=== PATIENT | male | born 1955 | race Caucasian/White ===

== ENCOUNTER 2017-03-22 14:55 | Emergency (ER) | payer BC, OTHER ==
[2017-03-22 15:30] VITALS: BP 168/91
--- NOTE | 2017-03-22 16:08 | UC ---
Lower Extremity/Ankle HPI - HPI Summary HPI Summary: 62 male presents to the with complaints of left toe tenderness, swelling and erythema that began 1 week ago. States it got worse over the weekend however, improved today after taking two aleve last night and taking mason extract vitamins. Patient states he had a similar episode years ago that were the same symptoms and diagnosed as gout. Took medication and had improvement. Denies any other pain or complaints. No other PMHx. Admits to eating a diet high in beer and cheese. - History of Current Complaint Hx Obtained From: Patient Onset/Duration: Sudden Onset, Lasting Weeks - 1, Still Present Severity Initially: Moderate Severity Currently: Mild Pain Intensity: 1 Pain Scale Used: 0-10 Numeric Aggravating Factor(s): Standing, Ambulation Alleviating Factor(s): Rest, OTC Meds Able to Bear Weight: Yes Feet (Multiple View): 1 - edema, erythema, tenderness <Georgette Marcelo - Last Filed: 03/22/17 16:09> <Priscilla Vergara - Last Filed: 03/22/17 17:31> - History of Current Complaint Chief Complaint: UCLowerExtremity Stated Complaint: LEFT FOOT COMPLAINT Time Seen by Provider: 03/22/17 15:41 - Allergies/Home Medications Allergies/Adverse Reactions: Allergies Allergy/AdvReac Type Severity Reaction Status Date / Time No Known Allergies Allergy Verified 03/22/17 15:25 Home Medications: Home Medications Misc Natural Products [Tart Mason Advanced] 1 cap PO DAILY 03/22/17 [History Confirmed 03/22/17] PMH/Surg Hx/FS Hx/Imm Hx - Additional Past Medical History Additional PMH: Denies DM, HTN, Asthma Admits to arthritis - Surgical History Surgical History: None - Family History Known Family History: Positive: None - Social History Alcohol Use: Daily Substance Use Type: None Smoking Status (MU): Light Every Day Tobacco Smoker Type: Cigars Amount Used/How Often: 1 cigarello Length of Time of Smoking/Using Tobacco: Since Age 47 - Immunization History Most Recent Influenza Vaccination: Not the 2016/2017 <Georgette Marcelo - Last Filed: 03/22/17 16:09> Review of Systems Constitutional: Negative Respiratory: Negative Cardiovascular: Negative Musculoskeletal: Arthralgia, Edema, Myalgia, Other: - erythema, left great toe Neurological: Negative All Other Systems Reviewed And Are Negative: Yes <Georgette Marcelo - Last Filed: 03/22/17 16:09> Physical Exam Triage Information Reviewed: Yes Appearance: Well-Appearing, No Pain Distress, Well-Nourished Vital Signs: Initial Vital Signs Temp 98.5 F 03/22/17 15:22 Pulse 70 03/22/17 15:22 Resp 16 03/22/17 15:22 BP 168/91 03/22/17 15:22 Pulse Ox 99 03/22/17 15:22 elevated BP noted, patient encouraged to follow up with pcp for recheck. asymptomatic at this time. Vital Signs Reviewed: Yes Neck: Positive: Supple Respiratory: Positive: Chest non-tender, Lungs clear, Normal breath sounds Cardiovascular: Positive: RRR, No Murmur, Pulses Normal - 2+ pedal b/l, Brisk Capillary Refill Musculoskeletal: Positive: Strength Intact, ROM Intact, Edema @ - with erythema and slight tenderness to palpation of left great toe at MCP. rest of exam normal Skin Exam: Normal Skin: Positive: Other - described above, left great toe <Georgette Marcelo - Last Filed: 03/22/17 16:09> Vital Signs: Initial Vital Signs Temp 98.5 F 03/22/17 15:22 Pulse 70 03/22/17 15:22 Resp 16 03/22/17 15:22 BP 168/91 03/22/17 15:22 Pulse Ox 99 03/22/17 15:22 <Priscilla Vergara - Last Filed: 03/22/17 17:31> Lower Extremity Course/Dx - Course Course Of Treatment: appears by PE findings and patient history to be suffering from acute gout. patient has had in the past, with similar symptoms. will treat with indomethacin and colchicine. recheck with PCP prior to travel to ensure improvement and more medication if needed. no concern for other etiology at this time, however if does not improve or worsens needs further work up and evaluation . normal vitals other than elevated BP, recheck with PCP. asmymptomatic at this time. Discussed diet to stay away from if able. Rest. - Differential Dx/Diagnosis Differential Diagnosis/HQI/PQRI: Gout, Infection, Septic Arthritis Provider Diagnoses: Acute gout, left great toe <Georgette Marcelo - Last Filed: 03/22/17 16:09> Discharge <Georgette Marcelo - Last Filed: 03/22/17 16:09> <Priscilla Vergara - Last Filed: 03/22/17 17:31> - Discharge Plan Condition: Good Disposition: HOME Prescriptions: Colchicine* [Colcrys*] 0.6 mg PO DAILY #10 tab Indomethacin CAP* [Indocin CAP*] 50 mg PO TID #21 cap Patient Education Materials: Gout (ED) Referrals: EDWARD Inman [Primary Care Provider] - Additional Instructions: Take medication as prescribed. Take with food. You may try to see if just indomethacin gives relief if desired. Avoid red meats, red cornelius and cheeses. If symptoms do not improve after 3 days start colchicine. Take with food. Stop taking if you experience upset stomach, vomiting and seek medical attention. IF symptoms do not improve or worsen over the next 5-7 days please seek medical attention promptly for further evaluation. Follow up with PCP and have rechecked by Wednesday of this week to ensure improvement, before traveling to [place]. Also follow up with PCP to recheck and discuss elevated BP, as yours was high at todays visit. within 1-2 weeks, sooner if symptomatic. Attestation Statement User Type: Provider - I was available for consult. This patient was seen by the FRANCES. The patient was not presented to, seen by, or examined by me. -Johny <Priscilla Vergara - Last Filed: 03/22/17 17:31>
== END 2017-03-22 16:17 | disposition home or self-care (01) ==
LOC: UCCORT 14:55
DX: M10.072 Idiopathic gout, left ankle and foot (principal); F17.290 Nicotine dependence, other tobacco product, uncomplicated
CPT/HCPCS: 99202; G0463

== ENCOUNTER 2017-03-26 14:50 | Emergency (ER) | payer BC ==
[2017-03-26 15:05] VITALS: BP 152/88
--- NOTE | 2017-04-12 19:23 | UC ---
Lower Extremity/Ankle HPI - HPI Summary HPI Summary: here for recheck left foot 4th toe---dx with gout rx taken as prescribed symptoms have significantly improved - History of Current Complaint Chief Complaint: UCLowerExtremity Stated Complaint: FOLLOW UP GOUT Time Seen by Provider: 03/26/17 15:51 Hx Obtained From: Patient Onset/Duration: Sudden Onset, Resolved Severity Initially: Moderate Severity Currently: Mild Pain Intensity: 1 Pain Scale Used: 0-10 Numeric Aggravating Factor(s): Nothing Able to Bear Weight: Yes - Allergies/Home Medications Allergies/Adverse Reactions: Allergies Allergy/AdvReac Type Severity Reaction Status Date / Time No Known Allergies Allergy Verified 03/26/17 14:59 PMH/Surg Hx/FS Hx/Imm Hx Previously Healthy: No - Gout - Surgical History Surgical History: None - Family History Known Family History: Positive: None - Social History Occupation: Employed Full-time Lives: With Family Alcohol Use: Daily Substance Use Type: None Smoking Status (MU): Light Every Day Tobacco Smoker Type: Cigars Amount Used/How Often: 1 daily Length of Time of Smoking/Using Tobacco: Since Age 47 - Immunization History Most Recent Influenza Vaccination: Not the Season Review of Systems Constitutional: Negative Skin: Negative Eyes: Negative ENT: Negative Respiratory: Negative Cardiovascular: Negative Gastrointestinal: Negative Genitourinary: Negative Motor: Negative Neurovascular: Negative Musculoskeletal: Arthralgia - resolving left foot pain Neurological: Negative Psychological: Negative Is Patient Immunocompromised?: No All Other Systems Reviewed And Are Negative: Yes Physical Exam Triage Information Reviewed: Yes Appearance: Well-Appearing, No Pain Distress, Well-Nourished Vital Signs: Initial Vital Signs Temp 98.4 F 03/26/17 14:59 Pulse 76 03/26/17 14:59 Resp 16 03/26/17 14:59 BP 152/88 03/26/17 14:59 Pulse Ox 99 03/26/17 14:59 Vital Signs Reviewed: Yes Eye Exam: Normal Eyes: Positive: Conjunctiva Clear ENT Exam: Normal ENT: Positive: Normal ENT inspection, Hearing grossly normal, Pharynx normal, TMs normal, Uvula midline. Negative: Nasal congestion, Tonsillar swelling, Tonsillar exudate, Trismus, Muffled voice, Hoarse voice, Dental tenderness, Sinus tenderness Dental Exam: Normal Neck exam: Normal Neck: Positive: Supple, Nontender, No Lymphadenopathy Respiratory Exam: Normal Respiratory: Positive: Chest non-tender, Lungs clear, Normal breath sounds, No respiratory distress, No accessory muscle use Cardiovascular Exam: Normal Cardiovascular: Positive: RRR, No Murmur, Pulses Normal, Brisk Capillary Refill Musculoskeletal Exam: Normal Musculoskeletal: Positive: Strength Intact, ROM Intact, No Edema Neurological Exam: Normal Neurological: Positive: Alert, Muscle Tone Normal Psychological Exam: Normal Skin Exam: Normal Lower Extremity Course/Dx - Course Course Of Treatment: continued meds as directed, low purine diet follow with pcp for further problems - Differential Dx/Diagnosis Provider Diagnoses: resolving gout, elevated blood pressure with dx of hypertension Discharge - Discharge Plan Condition: Stable Disposition: HOME Patient Education Materials: Low Purine Diet (ED), Gout (ED) Referrals: No Primary Care Phys,NOPCP [Primary Care Provider] - Additional Instructions: Follow with Primary Care Doctor---I think it would be ok to decrease you Indocin to 2 times a day (with food) and if you continue to fell well in 3-4 days decrease to one a day--
== END 2017-03-26 16:02 | disposition home or self-care (01) ==
LOC: UCCORT 14:50
DX: M10.072 Idiopathic gout, left ankle and foot (principal); R03.0 Elevated blood-pressure reading, without diagnosis of hypertension; Z72.0 Tobacco use
CPT/HCPCS: 99211; G0463

== ENCOUNTER 2018-08-11 14:46 | Emergency (ER) | payer BC ==
[2018-08-11 15:03] VITALS: BP 163/90
--- NOTE | 2018-08-11 16:02 | UC ---
Headache HPI - HPI Summary HPI Summary: Patient states he has had a headache for the past 3 days. he was at the hospital with his for a few days, and was straining to see the TV for hours. he also has not taken his BP medication for the last 3 months and BP is elevated. He has also had a sore thraot and been around sick grandkids - History Of Current Complaint Chief Complaint: UCHeadache Stated Complaint: POLK Time Seen by Provider: 08/11/18 15:47 Hx Obtained From: Patient Onset/Duration: Sudden Onset, Lasting Days Onset Of Symptoms: Gradual Initially Headache Was: Mild Currently Pain Is: Mild Pain Intensity: 3 Timing: Constant Character: Dull, Pressure Location of Headache: Temporal, Occipital Aggravating Factor(s): Nothing Allevating Factor(s): Medication Associated Signs And Symptoms: Positive: Neck Stiffness - Allergies/Home Medications Allergies/Adverse Reactions: Allergies Allergy/AdvReac Type Severity Reaction Status Date / Time No Known Allergies Allergy Verified 08/11/18 15:04 Home Medications: Home Medications Turmeric Root Extract [Turmeric Curcumin] 500 mg PO DAILY 08/11/18 [History Confirmed 08/11/18] PMH/Surg Hx/FS Hx/Imm Hx Previously Healthy: Yes - Surgical History Surgical History: None - Family History Known Family History: Positive: Hypertension - Social History Alcohol Use: Daily Alcohol Amount: 3-4 beers a day Substance Use Type: None Smoking Status (MU): Light Every Day Tobacco Smoker Type: Cigars Amount Used/How Often: 1 daily Length of Time of Smoking/Using Tobacco: Since Age 47 - Immunization History Most Recent Influenza Vaccination: Not the Season Review of Systems All Other Systems Reviewed And Are Negative: Yes Constitutional: Positive: Negative Skin: Positive: Negative Eyes: Positive: Negative ENT: Positive: Ear Ache Respiratory: Positive: Negative Cardiovascular: Positive: Negative Gastrointestinal: Positive: Negative Genitourinary: Positive: Negative Motor: Positive: Negative Neurovascular: Positive: Negative Musculoskeletal: Positive: Myalgia Neurological: Positive: Headache Psychological: Positive: Negative Is Patient Immunocompromised?: No Physical Exam Triage Information Reviewed: Yes Appearance: Well-Appearing, Well-Nourished, Pain Distress Vital Signs: Initial Vital Signs Temp 98.0 F 08/11/18 14:58 Pulse 80 08/11/18 14:58 Resp 16 08/11/18 14:58 BP 163/90 08/11/18 14:58 Pulse Ox 99 08/11/18 14:58 Vital Signs Reviewed: Yes Eye Exam: Normal ENT: Positive: Pharyngeal erythema, TMs normal, Tonsillar swelling Dental Exam: Normal Neck exam: Normal Neck: Positive: Supple, Nontender, No Lymphadenopathy Respiratory Exam: Normal Respiratory: Positive: Chest non-tender, Lungs clear, Normal breath sounds Cardiovascular Exam: Normal Cardiovascular: Positive: RRR, No Murmur, Pulses Normal Abdominal Exam: Normal Abdomen Description: Positive: Nontender, No Organomegaly, Soft Bowel Sounds: Positive: Present Musculoskeletal Exam: Normal Neurological Exam: Normal Psychological Exam: Normal Skin Exam: Normal Headache Course/Dx - Course Course Of Treatment: hx obtained,exam performed, meds reviewed, rapid strep obtained - Differential Dx/Diagnosis Provider Diagnosis: Tension type headache Discharge - Sign-Out/Discharge Documenting (check all that apply): Patient Departure All imaging exams completed and their final reports reviewed: No Studies - Discharge Plan Condition: Stable Disposition: HOME Patient Education Materials: Tension Headache (ED) Referrals: Aaliyah CLARK,Prince Larry [Primary Care Provider] - Additional Instructions: 1. continue with your aleve every 12 hours. 2. Heat the neck and do some gentle stretching. 3. Start taking your blood pressure medication as your blood pressure is elevated. Please follow up with your primary doctor. 4. your strep test was negative. - Billing Disposition and Condition Condition: STABLE Disposition: Home - Attestation Statements Provider Attestation: I was available for consult. This patient was seen by the FRANCES. The patient was not presented to, seen by, or examined by me. -Johny
== END 2018-08-11 16:14 | disposition home or self-care (01) ==
LOC: UCCORT 14:46
DX: G44.209 Tension-type headache, unspecified, not intractable (principal); M79.10 Myalgia, unspecified site; F17.210 Nicotine dependence, cigarettes, uncomplicated
CPT/HCPCS: 87651; 99211; G0463

== ENCOUNTER 2018-10-03 14:43 | Emergency (ER) | payer BC ==
[2018-10-03 15:22] VITALS: BP 137/72
--- NOTE | 2018-10-03 16:00 | UC ---
Hand/Wrist HPI - HPI Summary HPI Summary: Pt presents with c/o sudden onset of swelling, tenderness and erythema in right fifth finger, DIP joint X 2 days. Pt has hx of gout and states that he "drank a beer or two" on wednesday evening. - History Of Current Complaint Chief Complaint: UCUpperExtremity Stated Complaint: RIGHT PINKY Time Seen by Provider: 10/03/18 15:54 Hx Obtained From: Patient ?: No Onset/Duration: Sudden Onset, Lasting Days, Still Present Severity Initially: Moderate Severity Currently: Moderate Pain Intensity: 2 Character Of Pain: Dull, Aching, Stiffness Aggravating Factor(s): Movement Alleviating Factor(s): Nothing Associated Signs And Symptoms: Positive: Swelling, Redness Related History: Dominant Hand Right - Risk Factors Compartment Syndrome Risk Factors: Pain - Allergies/Home Medications Allergies/Adverse Reactions: Allergies Allergy/AdvReac Type Severity Reaction Status Date / Time No Known Allergies Allergy Verified 10/03/18 15:11 Home Medications: Home Medications Lisinopril TAB* [Prinivil TAB 10 MG*] 10 mg PO DAILY 10/03/18 [History Confirmed 10/03/18] PMH/Surg Hx/FS Hx/Imm Hx Previously Healthy: Yes Cardiovascular History: Hypertension - Surgical History Surgical History: None - Family History Known Family History: Positive: Hypertension - Social History Occupation: Employed Full-time Lives: With Family Alcohol Use: Daily Alcohol Amount: 3-4 beers a day Substance Use Type: None Smoking Status (MU): Light Every Day Tobacco Smoker Type: Cigars Amount Used/How Often: 1 daily Length of Time of Smoking/Using Tobacco: Since Age 47 Have You Smoked in the Last Year: Yes - Immunization History Most Recent Influenza Vaccination: Not the 2017/2017 Season Vaccination Up to Date: Yes Review of Systems All Other Systems Reviewed And Are Negative: Yes Constitutional: Positive: Negative Skin: Positive: Other - erythema Eyes: Positive: Negative ENT: Positive: Negative Respiratory: Positive: Negative Cardiovascular: Positive: Negative Gastrointestinal: Positive: Negative Genitourinary: Positive: Negative Motor: Positive: Decreased ROM - right 5th finger, DIP joint Neurovascular: Positive: Negative Musculoskeletal: Positive: Decreased ROM - right 5th finger DIP joint, Edema, Myalgia Neurological: Positive: Negative Psychological: Positive: Negative Is Patient Immunocompromised?: No Physical Exam Triage Information Reviewed: Yes Appearance: Well-Appearing Vital Signs: Initial Vital Signs Temp 97.5 F 10/03/18 15:14 Pulse 77 10/03/18 15:14 Resp 15 10/03/18 15:14 BP 137/72 10/03/18 15:14 Pulse Ox 100 10/03/18 15:14 Vital Signs Reviewed: Yes Eye Exam: Normal ENT Exam: Normal Dental Exam: Normal Neck exam: Normal Respiratory: Positive: No respiratory distress Musculoskeletal: Positive: ROM Limited @ - right 5th finger DIP joint, Edema @ - right 5th finger DIP joint Neurological Exam: Normal Psychological Exam: Normal Skin Exam: Other - erythema right 5th finger DIP joint Hand/Wrist Course/Dx - Differential Dx/Diagnosis Differential Diagnosis/HQI/PQRI: Bursitis, Cellulitis, Gout Provider Diagnosis: Gout Discharge - Sign-Out/Discharge Documenting (check all that apply): Patient Departure All imaging exams completed and their final reports reviewed: No Studies - Discharge Plan Condition: Stable Disposition: HOME Prescriptions: Colchicine* [Colcrys*] 0.6 mg PO DAILY #3 tab Patient Education Materials: Low Purine Diet (ED), Gout (ED) Referrals: [facility] [Outside] - If Needed No Primary Care Phys,NOPCP [Primary Care Provider] - - Billing Disposition and Condition Condition: STABLE Disposition: Home
== END 2018-10-03 16:15 | disposition home or self-care (01) ==
LOC: UCCORT 14:43
DX: M10.9 Gout, unspecified (principal); I10 Essential (primary) hypertension; F17.210 Nicotine dependence, cigarettes, uncomplicated
CPT/HCPCS: 99212; G0463